=== PATIENT | male | born 1965 | race Caucasian/White ===

== ENCOUNTER 2017-02-15 17:29 | Emergency (ER) | payer BC, OTHER ==
[2017-02-15 17:43] VITALS: BP 142/85; PULSE 86; RESP 18; TEMP 98.4
--- NOTE | 2017-02-15 18:00 | ED ---
Lower Extremity Injury HPI - General Chief Complaint: Extremity Injury, Lower Stated Complaint: Knee Pain Time Seen by Provider: 02/15/17 17:47 Source: patient, RN notes reviewed Mode of arrival: ambulatory Limitations: no limitations - History of Present Illness Initial Comments: 51-year-old male presents to the emergency department with a chief complaint of left knee pain. Patient states that last night he decided pain along the medial aspect and theswelling today. Patient states he feels almost like a crack or pop-like sensation with certain movements. Patient states he is able to walk but does appear limp. Patient states he was concerned due to his discomfort so he thought that he should be evaluated. Patient denies any other symptoms at this time. Patient denies any fall or trauma. Patient states he is not currently having any other symptoms.Patient denies any recent fever, chills, shortness of breath, chest pain, back pain, abdominal pain, nausea vomiting, numbness or tingling, dysuria or hematuria, constipation or diarrhea, headaches or visual changes, or any other current symptoms. - Related Data Previous Rx's Medication Instructions Recorded HYDROcodone/APAP 7.5-325MG [[place] 1 - 2 each PO Q6HR PRN #40 tab 04/25/14 7.5] Ibuprofen [Motrin] 600 mg PO Q6HR PRN #20 tab 02/15/17 Allergies Allergy/AdvReac Type Severity Reaction Status Date / Time No Known Allergies Allergy Verified 02/15/17 17:43 Review of Systems ROS Statement: Those systems with pertinent positive or pertinent negative responses have been documented in the HPI. ROS Other: All systems not noted in ROS Statement are negative. Past Medical History Past Medical History: Hypertension Additional Past Medical History / Comment(s): varicose veins, elevated BP- no rx , arthritis History of Any Multi-Drug Resistant Organisms: None Reported Past Surgical History: Orthopedic Surgery Additional Past Surgical History / Comment(s): colonoscopy shoulder Past Anesthesia/Blood Transfusion Reactions: No Reported Reaction Past Psychological History: No Psychological Hx Reported Smoking Status: Never smoker Past Alcohol Use History: Daily, Occasional Past Drug Use History: None Reported - Past Family History Father Family Medical History: Cancer Mother Family Medical History: Diabetes Mellitus General Exam - General Exam Comments Initial Comments: General: The patient is awake and alert, in no distress, and does not appear acutely ill. Neck: The neck is supple, there is no tenderness. Cardiovascular: There is a regular rate and rhythm. No murmur, rub or gallop is appreciated. Respiratory: Lungs are clear to auscultation, respirations are non-labored, breath sounds are equal. No wheezes, stridor, rales, or rhonchi. Musculoskeletal: Patient With 2+ pulses. Left +. Range of motion of left ankle left knee and left hip. Patient does appear to have minimal swelling noted along the medial aspect. No bony point tenderness but mild tenderness diffusely over the medial area. 5 out of 5 muscle strength testing throughout. Neurological: CN II-XII intact, There are no obvious motor or sensory deficits. Coordination appears grossly intact. Speech is normal. Skin: Skin is warm and dry and no rashes or lesions are noted. Psychiatric: Normal mood and affect. Limitations: no limitations Course Vital Signs 02/15/17 17:40 Temperature 98.4 F Pulse Rate 86 Respiratory 18 Rate Blood Pressure 142/85 O2 Sat by Pulse 99 Oximetry Procedures - Orthopedic Splinting/Casting Injury #1 Side: right Lower Extremity Injury Location: knee Lower Extremity Immobilizer: Thee wrap Medical Decision Making - Medical Decision Making 51-year-old male presents to emergency room chief complaint of left knee pain. Patient at this time has undergone an x-ray. This time we discussed x-rays not showing any acute process however we discussed this still could be a further injury we did give him follow-up with orthopedic discussed return parameters. We discussed all patient's questions. He stated that he understood the plan. All questions have been answered. He will be discharged. - Radiology Data Radiology results: report reviewed, image reviewed Disposition Clinical Impression: Left knee sprain Disposition: HOME SELF-CARE Condition: Stable Instructions: Knee Sprain (ED) Additional Instructions: Please use medication as discussed. Please follow up with family doctor if symptoms have not improved over the next two days. Please return to the emergency room if your symptoms increase or worsen or for any other concerns. Prescriptions: Ibuprofen [Motrin] 600 mg PO Q6HR PRN #20 tab PRN Reason: Pain Referrals: Corinna Pringle MD [Primary Care Provider] - 1-2 days Time of Disposition: 18:10
--- NOTE | 2017-02-15 18:08 | XR ---
EXAMINATION TYPE: XR knee complete LT DATE OF EXAM: 02/15/2017 6:01 PM CLINICAL HISTORY: pain TECHNIQUE: Three views of the left knee are obtained. COMPARISON: None. FINDINGS: There is no acute fracture/dislocation. The tri-compartment joint spaces appear within no rmal limits. The overlying soft tissue appears unremarkable. Small subtalar joint effusion. IMPRESSION: There is no acute fracture or dislocation ICD 10 NO FRACTURE, INITIAL EVALUATION
== END 2017-02-15 18:18 | disposition home or self-care (01) ==
LOC: EC 17:29
DX: S83.92XA Sprain of unspecified site of left knee, initial encounter (principal); X50.9XXA Other and unspecified overexertion or strenuous movements or postures, initial encounter; Y93.89 Activity, other specified
CPT/HCPCS: 99283

== ENCOUNTER 2018-12-14 06:48 | Day surgery (SDC) | payer BC ==
[2018-12-12 12:17] VITALS: BMI 32.3
[~2018-12-14 06:48] MED LIST: LACTATED RINGERS 1,000 ML IV SCH
[2018-12-14 07:29] VITALS: TEMP 97.7
[2018-12-14] MEDS ORDERED: PROPOFOL 10 MG/ML 20 ML VIAL IV ONE (07:40)
[2018-12-14] MEDS ORDERED: fentaNYL (PF) 50 MCG/ML 2 ML AMP ONE (07:40)
[2018-12-14] MEDS ORDERED: LIDOCAINE 1% INJ 10MG/ML (20 ML MDV) ONE (07:40)
[2018-12-14] MEDS ORDERED: MIDAZOLAM 2 MG/2 ML VIAL ONE (07:40)
--- NOTE | 2018-12-14 08:21 | P.PCN ---
Date of Procedure: 12/14/18 Description of Procedure: BRIEF HISTORY: The patient is a 53-year-old male who presents for high-risk screening colonoscopy. The patient reports that he had a colonoscopy in the past for investigation of mucus discharge per rectum. At that time the patient reports he had polyps removed from his colon. No change in bowel habits, diarrhea, constipation or blood per rectum reported. No familial history of colon cancer reported. PROCEDURE PERFORMED: Colonoscopy with polypectomy. PREOPERATIVE DIAGNOSIS: High risk colon cancer screening, personal history of colonic polyps, remote history of colonoscopy with polypectomy. ESTIMATED BLOOD LOSS: Minimal. IV sedation per Anesthesia. PROCEDURE: After informed consent was obtained, the patient, was brought into the endoscopy unit. IV sedation was administered by Anesthesia under continuous monitoring. Digital rectal examination was normal. Initially the Olympus CF- 190 flexible video colonoscope was then inserted in the rectum, gradually advanced into the cecum without any difficulty. Careful examination was performed as the scope was gradually being withdrawn. Ileocecal valve and the appendiceal orifice were visualized and appeared normal. Prep was excellent. Mucosa of the cecum, ascending colon, transverse colon, descending colon, sigmoid colon, and rectum appeared normal. A diminutive 3 mm sessile cecal polyp was removed with cold forcep polypectomy. Mild scattered diverticulosis was noted in the sigmoid colon and descending colon. Retroflexion was performed in the rectum and no lesions were seen, mild internal hemorrhoids were noted. The patient tolerated the procedure well. IMPRESSION: 1. Normal-appearing colon from rectum to cecum. 2. Diminutive cecal polyp removed with cold forcep polypectomy. 3. Mild diverticulosis. 4. Mild internal hemorrhoids. RECOMMENDATIONS: Findings of this examination were discussed with the patient his . Okay to resume high-fiber diet. Await pathology from biopsies. Would recommend repeat colonoscopy in 5 years.
[2018-12-14 08:23] VITALS: RESP 16
[2018-12-14 08:34] VITALS: BP 106/65; PULSE 77
== END 2018-12-14 09:44 | disposition home or self-care (01) ==
LOC: ORWHC2ENDO 06:48
PROVIDERS: ATTEND Internal Medicine
DX: Z12.11 Encounter for screening for malignant neoplasm of colon (principal); D12.0 Benign neoplasm of cecum; K57.30 Diverticulosis of large intestine without perforation or abscess without bleeding; K64.8 Other hemorrhoids; Z86.010 Personal history of colon polyps; I10 Essential (primary) hypertension; Z79.899 Other long term (current) drug therapy
CPT/HCPCS: 88305; 45380; J2250; J2001; J3010; J2704

== ENCOUNTER → 2020-12-11 | Outpatient (CLI) | payer BC | END | disposition home or self-care (01) | LOC: LABWHC1 10:56 | PROVIDERS: ATTEND Nurse Practitioner | DX: R07.9 Chest pain, unspecified (principal) | CPT/HCPCS: 36415; 93005 ==

== ENCOUNTER → 2021-04-30 | Outpatient (CLI) | payer BC ==
--- NOTE | 2021-04-30 13:02 | EST ---
EXERCISE STRESS STRESS ECHO REPORT: Baseline EKG revealed normal sinus rhythm without significant ST changes. Patient walked on a standard Gal protocol for 9 minutes, 45 seconds. Achieved a maximal heart rate of 159 beats per minute, which is more than 85% of predicted maximum. Developed fatigue and shortness of breath but did not have angina or arrhythmia. EKG did not reveal any ST-segment changes to indicate ischemia. By EKG criteria, this is a negative stress test with good exercise capacity. Baseline echo images revealed normal wall motion and wall thickening of all segments. At peak exercise, there was good augmentation of left and wall motion wall thickening of all segments suggesting that there is no evidence of stress-induced ischemia. The patient was administered echo contrast to enhance quality of images. FINAL IMPRESSION: 1. Good exercise capacity. Negative stress test by EKG criteria. 2. Normal stress echocardiogram without evidence of ischemia. MMBING / GEORGEN: [id number] /
== END | disposition home or self-care (01) ==
LOC: RADNMMAIN 09:25
PROVIDERS: ATTEND Family Medicine
DX: R53.83 Other fatigue (principal); R06.02 Shortness of breath
CPT/HCPCS: 93351; Q9950

== ENCOUNTER 2023-09-16 21:29 | Emergency (ER) | payer BC ==
[2023-09-16 21:58] VITALS: TEMP 98
[2023-09-16] MEDS ORDERED: FLUORESCEIN STRIPS 1 MG STRIP LEFT EYE ONE (22:33)
[2023-09-16] MEDS ORDERED: PROPARACAINE 0.5% OPHTH DROPS 15 ML BTL LEFT EYE STA (22:33)
[2023-09-16] MEDS ORDERED: DIPH,PERTUS(ACELL)TETVAC-LF 0.5 ML VIAL IM ONE (22:59)
[2023-09-16] MEDS ORDERED: CIPROFLOXACIN 0.3% OPHTH SOLN 5 ML BTL LEFT EYE STA (22:59)
--- NOTE | 2023-09-16 23:18 | ED ---
General Adult HPI - General Chief complaint: Eye Problems Stated complaint: left eye pain Time Seen by Provider: 09/16/23 22:29 Source: patient, RN notes reviewed Mode of arrival: ambulatory Limitations: no limitations - History of Present Illness Initial comments: 57-year-old male presents to the emergency department chief complaint of left eye foreign body x 3 hours. He states that he was working with a crankshaft grinder on his lawnmower when something flew up into his left eye. He states that he has had a foreign body sensation ever since. He is unsure of the date of his last tetanus vaccination. He states that his vision has remained unchanged. - Related Data Home Medications Medication Instructions Recorded Confirmed lisinopriL [Zestril] 10 mg PO DAILY 12/12/18 12/14/18 Allergies Allergy/AdvReac Type Severity Reaction Status Date / Time No Known Allergies Allergy Verified 09/16/23 21:49 Review of Systems ROS Statement: Those systems with pertinent positive or pertinent negative responses have been documented in the HPI. ROS Other: All systems not noted in ROS Statement are negative. Past Medical History Past Medical History: Hypertension Additional Past Medical History / Comment(s): varicose veins, arthritis History of Any Multi-Drug Resistant Organisms: None Reported Past Surgical History: Orthopedic Surgery Additional Past Surgical History / Comment(s): colonoscopy, RT shoulder Past Anesthesia/Blood Transfusion Reactions: No Reported Reaction Past Psychological History: No Psychological Hx Reported Smoking Status: Never smoker Past Alcohol Use History: Occasional Past Drug Use History: None Reported - Past Family History Father Family Medical History: Cancer Mother Family Medical History: Diabetes Mellitus General Exam Limitations: no limitations General appearance: alert, in no apparent distress Head exam: Present: atraumatic, normocephalic, normal inspection Eye exam: Present: PERRL, EOMI, conjunctival injection, other (Visible foreign body left eye over cornea) ENT exam: Present: normal exam, mucous membranes moist Neck exam: Present: normal inspection. Absent: tenderness, meningismus, lymphadenopathy Back exam: Present: normal inspection Neurological exam: Present: alert, oriented X3 Psychiatric exam: Present: normal affect, normal mood Skin exam: Present: warm, dry, intact, normal color. Absent: rash Course Vital Signs 09/16/23 09/16/23 21:46 23:42 Temperature 98.0 F Pulse Rate 90 108 H Respiratory 17 20 Rate Blood Pressure 148/78 145/90 O2 Sat by Pulse 96 95 Oximetry Medical Decision Making - Medical Decision Making Was pt. sent in by a medical professional or institution ([facility] Isabel, [employer]BUILDING DRAFT[employer]ERSON, urgent care, hospital, or fdc...) When possible be specific @ -No Did you speak to anyone other than the patient for history (EMS, parent, family, police, friend...)? What history was obtained from this source @ -No Did you review nursing and triage notes (agree or disagree)? Why? @ -I reviewed and agree with nursing and triage notes Were old charts reviewed (outside hosp., previous admission, EMS record, old EKG, old radiological studies, urgent care reports/EKG's, fdc records)? Report findings @ -No old charts were reviewed Differential Diagnosis (chest pain, altered mental status, abdominal pain women, abdominal pain men, vaginal bleeding, weakness, fever, dyspnea, syncope, headache, dizziness, GI bleed, back pain, seizure, CVA, palpatations, mental health, musculoskeletal)? @ -Conjunctivitis, iritis, foreign body, corneal abrasion, this list is not all-inclusive EKG interpreted by me (3pts min.). @ -None X-rays interpreted by me (1pt min.). @ -None done CT interpreted by me (1pt min.). @ -None done U/S interpreted by me (1pt. min.). @ -None done What testing was considered but not performed or refused? (CT, X-rays, U/S, labs)? Why? @ -None What meds were considered but not given or refused? Why? @ -None Did you discuss the management of the patient with other professionals (professionals i.e. K[facility] Isabel, SHIPBUILDING DRAFTSPERSON, lab, RT, psych nurse, high school social studies teacher, beef cattle grazier, teacher, medical scientific officer, piano case and bench assembler)? Give summary @ -No Was smoking cessation discussed for >3mins.? @ -No Was critical care preformed (if so, how long)? @ -No Were there social determinants of health that impacted care today? How? (Homelessness, low income, unemployed, alcoholism, drug addiction, transportation, low edu. Level, literacy, decrease access to med. care, [place] [facility], rehab)? @ -No Was there de-escalation of care discussed even if they declined (Discuss DNR or withdrawal of care, Hospice)? DNR status @ -No What co-morbidities impacted this encounter? (DM, HTN, Smoking, COPD, CAD, Cancer, CVA, ARF, Chemo, Hep., AIDS, mental health diagnosis, sleep apnea, morbid obesity)? @ -None Was patient admitted / discharged? Hospital course, mention meds given and route, prescriptions, significant lab abnormalities, going to OR and other pertinent info. @ -Discharged. Patient presented to the emergency department chief complaint of left eye foreign body. With lamp examination shows small foreign body over the cornea. This was removed with a Q-tip and there is visible corneal abrasion without evidence of rust ring. Visual acuity 20/15 bilaterally. Patient will be started on ciprofloxacin drops twice a day 7 days. Patient understanding and agreeable with plan. Patient stable at time of discharge. Case discussed with Dr. Day Undiagnosed new problem with uncertain prognosis? @ -No Drug Therapy requiring intensive monitoring for toxicity (Heparin, Nitro, Insulin, Cardizem)? @ -No Were any procedures done? @ -No Diagnosis/symptom? @ -Left eye foreign body Acute, or Chronic, or Acute on Chronic? @ -Acute Uncomplicated (without systemic symptoms) or Complicated (systemic symptoms)? @ -uncomplicated Side effects of treatment? @ -No Exacerbation, Progression, or Severe Exacerbation? @ -No Poses a threat to life or bodily function? How? (Chest pain, [place], [place], pneumonia, PE, COPD, DKA, ARF, appy, cholecystitis, CVA, Diverticulitis, Homicidal, Suicidal, threat to staff... and all critical care pts) @ -No Disposition Clinical Impression: Eye foreign body Disposition: HOME SELF-CARE Condition: Stable Instructions (If sedation given, give patient instructions): Eye Foreign Body (ED) Additional Instructions: Instill 2 eye drops every 6 hours for 7 days. Follow up with ophthalmology. Return to the emergency department for new or worsening symptoms. Is patient prescribed a controlled substance at d/c from ED?: No Referrals: Corinna Pringle MD [Primary Care Provider] - 1-2 days
[2023-09-16 23:43] VITALS: BP 145/90; PULSE 108; RESP 20
== END 2023-09-16 23:43 | disposition home or self-care (01) ==
LOC: EC 21:29
DX: T15.02XA Foreign body in cornea, left eye, initial encounter (principal); Z23 Encounter for immunization; I10 Essential (primary) hypertension; Z79.899 Other long term (current) drug therapy; W44.8XXA Other foreign body entering into or through a natural orifice, initial encounter
CPT/HCPCS: 65222; 90471; 90715; 99283

== ENCOUNTER 2023-11-02 08:45 | Emergency (ER) | payer OTHER, BC ==
[2023-11-02] MEDS ORDERED: LIDOCAINE 1% INJ 10MG/ML (20 ML MDV) SQ ONE (09:06)
[2023-11-02 09:07] VITALS: RESP 16
[2023-11-02] MEDS ORDERED: BACITRACIN OINT 1 EACH PACKET TOPICAL ONE (09:13)
--- NOTE | 2023-11-02 09:13 | ED ---
Wound/Laceration HPI - General Chief Complaint: Wound/Laceration Stated Complaint: Right finger injury - [facility] Time Seen by Provider: 11/02/23 08:53 Source: patient, RN notes reviewed Mode of arrival: ambulatory Limitations: no limitations - History of Present Illness Initial Comments: 58-year-old male presents emergency Department with chief complaint of right thumb injury. 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 Patient states his nail of his thumb right hand slipped forward states there is a nail avulsion, laceration his tetanus up-to-date within last one year - Related Data Home Medications Medication Instructions Recorded Confirmed lisinopriL [Zestril] 10 mg PO DAILY 12/12/18 12/14/18 Allergies Allergy/AdvReac Type Severity Reaction Status Date / Time No Known Allergies Allergy Verified 09/16/23 21:49 Review of Systems ROS Statement: Those systems with pertinent positive or pertinent negative responses have been documented in the HPI. ROS Other: All systems not noted in ROS Statement are negative. Past Medical History Past Medical History: Hypertension Additional Past Medical History / Comment(s): varicose veins, arthritis History of Any Multi-Drug Resistant Organisms: None Reported Past Surgical History: Orthopedic Surgery Additional Past Surgical History / Comment(s): colonoscopy, RT shoulder Past Anesthesia/Blood Transfusion Reactions: No Reported Reaction Past Psychological History: No Psychological Hx Reported Smoking Status: Never smoker Past Alcohol Use History: Occasional Past Drug Use History: None Reported - Past Family History Father Family Medical History: Cancer Mother Family Medical History: Diabetes Mellitus General Exam Limitations: no limitations General appearance: alert, in no apparent distress Head exam: Present: atraumatic, normocephalic, normal inspection Respiratory exam: Present: normal lung sounds bilaterally. Absent: respiratory distress, wheezes, rales, rhonchi, stridor Cardiovascular Exam: Present: regular rate, normal rhythm, normal heart sounds. Absent: systolic murmur, diastolic murmur, rubs, gallop, clicks Extremities exam: Present: other (Right thumb there is nail avulsion, laceration, minimal bleeding, patient does have full range of motion) Course Vital Signs 11/02/23 08:48 Temperature 97.7 F Pulse Rate 80 Respiratory 16 Rate Blood Pressure 140/76 O2 Sat by Pulse 95 Oximetry Medical Decision Making - Medical Decision Making Was pt. sent in by a medical professional or institution (, [facility], [facility] [facility], urgent care, hospital, or assisted...) When possible be specific @ -No Did you speak to anyone other than the patient for history (EMS, parent, family, police, friend...)? What history was obtained from this source @ -No Did you review nursing and triage notes (agree or disagree)? Why? @ -I reviewed and agree with nursing and triage notes Were old charts reviewed (outside hosp., previous admission, EMS record, old EKG, old radiological studies, urgent care reports/EKG's, assisted records)? Report findings @ -No old charts were reviewed Differential Diagnosis (chest pain, altered mental status, abdominal pain women, abdominal pain men, vaginal bleeding, weakness, fever, dyspnea, syncope, headache, dizziness, GI bleed, back pain, seizure, CVA, palpatations, mental health, musculoskeletal)? @ -Thumb laceration, nail avulsion EKG interpreted by me (3pts min.). @ -None X-rays interpreted by me (1pt min.). @ -X-ray right thumb 3 view no acute osseous abnormality no acute fracture CT interpreted by me (1pt min.). @ -None done U/S interpreted by me (1pt. min.). @ -None done What testing was considered but not performed or refused? (CT, X-rays, U/S, labs)? Why? @ -None What meds were considered but not given or refused? Why? @ -None Did you discuss the management of the patient with other professionals (professionals i.e. , KIM, [employer] TANNER, lab, RT, psych nurse, rn social work, cold roll packer sheet iron, teacher, asset protection officer, porter sample case)? Give summary @ -No Was smoking cessation discussed for >3mins.? @ -No Was critical care preformed (if so, how long)? @ -No Were there social determinants of health that impacted care today? How? (Homelessness, low income, unemployed, alcoholism, drug addiction, transportation, low edu. Level, literacy, decrease access to med. care, fdc, rehab)? @ -No Was there de-escalation of care discussed even if they declined (Discuss DNR or withdrawal of care, Hospice)? DNR status @ -No What co-morbidities impacted this encounter? (DM, HTN, Smoking, COPD, CAD, Cancer, CVA, ARF, Chemo, Hep., AIDS, mental health diagnosis, sleep apnea, morbid obesity)? @ -None Was patient admitted / discharged? Hospital course, mention meds given and route, prescriptions, significant lab abnormalities, going to OR and other pertinent info. @ -[Discharge patient has nail avulsion there is no repairable laceration. Patient thumb was cleaned, dressed will follow up with [facility], hand surgery Undiagnosed new problem with uncertain prognosis? @ -No Drug Therapy requiring intensive monitoring for toxicity (Heparin, Nitro, Insulin, Cardizem)? @ -No Were any procedures done? @ -No Diagnosis/symptom? @ -Nail avulsion thumb, laceration Acute, or Chronic, or Acute on Chronic? @ -Acute Uncomplicated (without systemic symptoms) or Complicated (systemic symptoms)? @ -[Uncomplicated Side effects of treatment? @ -No Exacerbation, Progression, or Severe Exacerbation? @ -No Poses a threat to life or bodily function? How? (Chest pain, [place], [place], pneumonia, PE, COPD, DKA, ARF, appy, cholecystitis, CVA, Diverticulitis, Homicidal, Suicidal, threat to staff... and all critical care pts) @ -No Disposition Clinical Impression: Avulsion of nail of right thumb Disposition: HOME SELF-CARE Condition: Stable Instructions (If sedation given, give patient instructions): Nail Avulsion (ED) Additional Instructions: Please return to the Emergency Department if symptoms worsen or any other concerns. Is patient prescribed a controlled substance at d/c from ED?: No Referrals: Corinna Pringle MD [Primary Care Provider] - 1-2 days Ye Yin DO [Doctor of Osteopathic Medicine] - 1-2 days Time of Disposition: 09:39
--- NOTE | 2023-11-02 09:16 | XR ---
EXAMINATION TYPE: XR finger RT DATE OF EXAM: 11/02/2023 COMPARISON: NONE HISTORY: 58-year-old male trauma first digit, laceration and pain TECHNIQUE: 3 views coned-down right thumb FINDINGS: Mild degenerative spurring first MCP joint. No retained radiopaque foreign body seen. No ac cassandra fracture, subluxation, or dislocation. IMPRESSION: No acute osseous abnormality seen.
[2023-11-02 09:55] VITALS: BP 138/72; PULSE 78; TEMP 97.9
== END 2023-11-02 09:53 | disposition home or self-care (01) ==
LOC: EC 08:45
DX: S61.111A Laceration without foreign body of right thumb with damage to nail, initial encounter (principal); I10 Essential (primary) hypertension; W26.8XXA Contact with other sharp object(s), not elsewhere classified, initial encounter
CPT/HCPCS: 73140; 99283; J2001

== ENCOUNTER 2025-03-29 07:19 | Day surgery (SDC) | payer BC ==
[2025-03-27 15:56] VITALS: BMI 34.7
[2025-03-29] MEDS: IV FLUID CONTINUATION 1,000 ML IV ONE (07:34)
[2025-03-29 07:53] LABS: Glucose,Whole Blood 156 mg/dL (70-110)
[2025-03-29] MEDS ORDERED: LACTATED RINGERS 1,000 ML BAG IV STA (08:51)
[2025-03-29] MEDS ORDERED: LACTATED RINGERS 1,000 ML IV SCH (08:51)
[2025-03-29] MEDS ORDERED: PROPOFOL 10 MG/ML 20 ML VIAL IV ONE (08:56)
--- NOTE | 2025-03-29 09:09 | P.PCN ---
Date of Procedure: 03/29/25 Procedure(s) Performed: BRIEF HISTORY: Patient is a 59-year-old pleasant white male scheduled for an elective colonoscopy as a part of screening for prior history of colon polyps. Last colonoscopy was 6 years ago. PROCEDURE PERFORMED: Colonoscopy with biopsy. PREOPERATIVE DIAGNOSIS: Screening for history of colon polyps. IV sedation per Anesthesia. PROCEDURE: After informed consent was obtained, the patient, was brought into the endoscopy unit. IV sedation was administered by Anesthesia under continuous monitoring. Digital rectal examination was normal. Initially the Olympus CF-160 flexible video colonoscope was then inserted in the rectum, gradually advanced into the cecum without any difficulty. Careful examination was performed as the scope was gradually being withdrawn. Ileocecal valve and the appendiceal orifice were visualized and appeared normal. Prep was excellent. Mucosa of the cecum, ascending colon, transverse colon, descending colon, appeared normal. In the sigmoid colon there was a 4 mm polyp that was removed by cold biopsy. Scattered, diverticulosis seen. Sigmoid colon, and rectum appeared normal. Retroflexion was performed in the rectum and no lesions were seen. The patient tolerated the procedure well. IMPRESSION: 4 mm sigmoid colon polyp status post cold biopsy Scattered sigmoid diverticulosis. RECOMMENDATIONS: Findings of this examination were discussed with the patient as well as his family. He was advised to follow-up with the biopsy results. If the biopsy reveals adenoma he can have repeat colonoscopy in 5 years..
[2025-03-29 09:17] VITALS: RESP 16
[2025-03-29 09:25] VITALS: BP 100/66; PULSE 77
== END 2025-03-29 09:40 | disposition home or self-care (01) ==
LOC: ORWHC2ENDO 07:19
PROVIDERS: ATTEND Internal Medicine Gastroenterology
DX: Z12.11 Encounter for screening for malignant neoplasm of colon (principal); K57.30 Diverticulosis of large intestine without perforation or abscess without bleeding; K63.5 Polyp of colon; I10 Essential (primary) hypertension; E78.5 Hyperlipidemia, unspecified; E11.9 Type 2 diabetes mellitus without complications; Z86.0100 Personal history of colon polyps, unspecified; Z79.84 Long term (current) use of oral hypoglycemic drugs; Z79.899 Other long term (current) drug therapy; Z98.890 Other specified postprocedural states
CPT/HCPCS: 88305; 45380; J2704